=== PATIENT | male | born 1955 | race Caucasian/White ===

== ENCOUNTER 2020-08-28 08:24 | Outpatient (CLI) | payer OTHER, SELFPAY ==
--- NOTE | 2020-08-28 08:45 | USCV_ITS ---
Kurt Estrada Age: 64 Gender: M : 1955 Exam Date: 08/28/2020 08:43 Ordering Phys: Stephan Scott M.D ([email or web address]) Technologist: Carloz Feng Exam Location: [facility] – [place] Indication: murmur BP: 127 / 73 HR: 71 Rhythm: Sinus Technical Quality: Fair MEASUREMENTS (Male / Female) Normal Values 2D ECHO LV Diastolic Diameter PLAX 5.6 cm 4.2 - 5.9 / 3.9 - 5.3 cm LV Systolic Diameter PLAX 3.4 cm IVS Diastolic Thickness 1.6 cm 0.6 - 1.0 / 0.6 - 0.9 cm IVS Systolic Thickness 2.0 cm LVPW Diastolic Thickness 1.4 cm 0.6 - 1.0 / 0.6 - 0.9 cm LVPW Systolic Thickness 1.7 cm LVOT Diameter 2.1 cm LV Ejection Fraction 2D Teich 69.0 % LV Ejection Fraction MOD 2C 62.2 % LV Ejection Fraction 2C AL 64.3 % LA Diameter 3.9 cm Aorta at Sinotubular Diameter 3.0 cm DOPPLER AV Peak Velocity 98.0 cm/s LVOT Peak Velocity 83.0 cm/s AV Area Cont Eq vti 2.6 cm squared AV Area Cont Eq pk 2.9 cm squared MV Area PHT 5.0 cm squared Mitral E to A Ratio 1.9 MV E' Velocity 114.0 cm/s Mitral E to LV E' Septal Ratio 10.6 TR Peak Velocity 163.0 cm/s TR Peak Gradient 10.6 mmHg TV Peak E Velocity 105.0 cm/s Right Atrial Pressure 3.0 mmHg Pulmonary Artery Systolic Pressu 13.6 mmHg PV Peak Velocity 88.0 cm/s FINDINGS Left Ventricle Normal left ventricular size,. LV systolic function is normal with EF of 55-60%. No regional wall motion abnormalities. Diastolic function is normal Right Ventricle The right ventricle is normal in size and function. Right Atrium The right atrium is normal in size. Left Atrium The left atrium is normal in size. Mitral Valve Grossly normal without significant stenosis or prolapse. There is mild mitral regurgitation. Aortic Valve Structurally normal aortic valve without significant sclerosis or stenosis. There is no aortic regurgitation. Tricuspid Valve Grossly normal without significant stenosis or regurgitation. Insufficient TR jet to calculate RVSP Pulmonic Valve Grossly normal Pericardium Normal pericardium without effusion. Aorta Normal ascending aorta dimension. CONCLUSIONS LV systolic function is normal with EF of 55-60%. Diastolic function is normal Mild mitral regurgitation Compared to prior echocardiogram from 12/22/2015, no significant changes are noted Stephan Scott MD (Electronically Signed) Final Date: 04 September 2020 17:28 S
[2020-08-28] MEDS: perflutren protein-a microsphr 0.22 mg/mL SDV 3 mL IV (09:22)
== END 2020-08-28 08:25 | disposition home or self-care (01) ==
LOC: RAD 08:29
PROVIDERS: PCP Internal Medicine; Visit Provider Internal Medicine
DX: R01.1 Cardiac murmur, unspecified (principal); I34.0 Nonrheumatic mitral (valve) insufficiency
CPT/HCPCS: C8929

== ENCOUNTER 2020-11-13 14:21 | Outpatient (CLI) | payer OTHER, SELFPAY | END 2020-11-13 14:22 | disposition home or self-care (01) | LOC: WOUND 14:21 | PROVIDERS: PCP Internal Medicine; Visit Provider Thoracic Surgery (Cardiothoracic Vascular Surgery) | DX: E11.621 Type 2 diabetes mellitus with foot ulcer (principal); L97.522 Non-pressure chronic ulcer of other part of left foot with fat layer exposed | CPT/HCPCS: 11042; G0463 ==

== ENCOUNTER 2020-11-14 10:58 | Outpatient (CLI) | payer OTHER, SELFPAY ==
--- NOTE | 2020-11-14 11:10 | XR_ITS ---
WS: [id number] RIGHT FOOT: 3 VIEW(S) TECHNIQUE: AP, oblique and lateral. HISTORY: TYPE 2 DIABETES MELLITUS WITH FOOT ULCER COMPARISON: None available. Soft tissue thickening and edema over the lateral foot at the level of the fifth metatarsal. Soft tis kaiser thickening extends over a length of 5.3 cm x 0.6 cm centered along the lateral foot. There is ext ensive hypertrophic bone formation involving the proximal third, fourth and fifth metatarsals. Extens damian soft tissue calcifications along the lateral surface of the foot extending towards the calcaneus. Probably from healed osteomyelitis. At this time no evidence for an acute osteomyelitis is demonstra kaylan. XR/XR foot RT min 3V* [id number] IMPRESSION: 1. Extensive soft tissue edema along the lateral foot at the level of the fift h proximal metatarsal. There is no large soft tissue ulceration. 2. Hypertrophic bone formation with loss of the normal contours of the third, fourth and fifth proximal metatarsals. Probably from healed areas of osteomyeli tis. At this time there is no evidence for an acute radiographic osteomyelitis.
--- NOTE | 2020-11-14 11:10 | XR_ITS ---
WS: [id number] LEFT FOOT: 3 VIEW(S) TECHNIQUE: AP, oblique and lateral. HISTORY: TYPE 2 DIABETES MELLITUS WITH FOOT ULCER COMPARISON: None available. No acute fracture. Marked internal rotation of the foot with respect to the ankle. Overlapping tarsal and metatarsals. H ammertoe deformities. Mild soft tissue thickening along the lateral foot. The underlying bone appears intact. No evidence for osteomyelitis. Calcifications are noted in the soft tissues adjacent to the cuboid. XR/XR foot LT min 3V* [id number] IMPRESSION: 1. Mild soft tissue edema along the lateral foot. 2. No evidence for osteomyelitis evident radiographically.
== END 2020-11-14 10:59 | disposition home or self-care (01) ==
PROVIDERS: PCP Internal Medicine; Visit Provider Thoracic Surgery (Cardiothoracic Vascular Surgery)
DX: E11.621 Type 2 diabetes mellitus with foot ulcer (principal); R60.0 Localized edema
CPT/HCPCS: 73630

== ENCOUNTER 2020-11-20 15:37 | Outpatient (CLI) | payer OTHER, SELFPAY | END 2020-11-20 15:38 | disposition home or self-care (01) | LOC: WOUND 15:37 | PROVIDERS: PCP Internal Medicine; Visit Provider Thoracic Surgery (Cardiothoracic Vascular Surgery) | DX: E11.621 Type 2 diabetes mellitus with foot ulcer (principal); L97.521 Non-pressure chronic ulcer of other part of left foot limited to breakdown of skin | CPT/HCPCS: 97597 ==

== ENCOUNTER 2020-11-27 15:22 | Outpatient (CLI) | payer OTHER, SELFPAY | END 2020-11-27 15:23 | disposition home or self-care (01) | LOC: WOUND 15:26 | PROVIDERS: PCP Internal Medicine; Visit Provider Nurse Practitioner Family | DX: E11.621 Type 2 diabetes mellitus with foot ulcer (principal); L97.522 Non-pressure chronic ulcer of other part of left foot with fat layer exposed | CPT/HCPCS: 11042 ==

== ENCOUNTER 2020-12-03 15:13 | Outpatient (CLI) | payer OTHER, SELFPAY | END 2020-12-03 15:14 | disposition home or self-care (01) | LOC: WOUND 15:13 | PROVIDERS: PCP Internal Medicine; Visit Provider Nurse Practitioner Family | DX: E11.621 Type 2 diabetes mellitus with foot ulcer (principal); L97.522 Non-pressure chronic ulcer of other part of left foot with fat layer exposed | CPT/HCPCS: 11042 ==

== ENCOUNTER 2020-12-10 14:58 | Outpatient (CLI) | payer OTHER, SELFPAY | END 2020-12-10 14:59 | disposition home or self-care (01) | LOC: WOUND 15:00 | PROVIDERS: PCP Internal Medicine; Visit Provider Thoracic Surgery (Cardiothoracic Vascular Surgery) | DX: E11.621 Type 2 diabetes mellitus with foot ulcer (principal); L97.521 Non-pressure chronic ulcer of other part of left foot limited to breakdown of skin; I10 Essential (primary) hypertension | CPT/HCPCS: 97597 ==

== ENCOUNTER 2020-12-24 15:08 | Outpatient (CLI) | payer OTHER, SELFPAY | END 2020-12-24 15:09 | disposition home or self-care (01) | PROVIDERS: PCP Internal Medicine; Visit Provider Thoracic Surgery (Cardiothoracic Vascular Surgery) | DX: E11.621 Type 2 diabetes mellitus with foot ulcer (principal); L97.521 Non-pressure chronic ulcer of other part of left foot limited to breakdown of skin; I10 Essential (primary) hypertension | CPT/HCPCS: 97597 ==

== ENCOUNTER 2021-01-07 15:12 | Outpatient (CLI) | payer OTHER, SELFPAY | END 2021-01-07 15:13 | disposition home or self-care (01) | LOC: WOUND 15:13 | PROVIDERS: PCP Internal Medicine; Visit Provider Nurse Practitioner Family | DX: E11.621 Type 2 diabetes mellitus with foot ulcer (principal); L97.521 Non-pressure chronic ulcer of other part of left foot limited to breakdown of skin; I10 Essential (primary) hypertension | CPT/HCPCS: 11042 ==

== ENCOUNTER 2021-01-14 15:37 | Outpatient (CLI) | payer OTHER, SELFPAY | END 2021-01-14 15:38 | disposition home or self-care (01) | LOC: WOUND 15:37 | PROVIDERS: PCP Internal Medicine; Visit Provider Emergency Medicine | DX: E11.621 Type 2 diabetes mellitus with foot ulcer (principal); L97.522 Non-pressure chronic ulcer of other part of left foot with fat layer exposed | CPT/HCPCS: 11042 ==

== ENCOUNTER 2021-01-21 15:40 | Outpatient (CLI) | payer OTHER, SELFPAY | END 2021-01-21 15:41 | disposition home or self-care (01) | LOC: WOUND 15:41 | PROVIDERS: PCP Internal Medicine; Visit Provider Thoracic Surgery (Cardiothoracic Vascular Surgery) | DX: E11.621 Type 2 diabetes mellitus with foot ulcer (principal); L97.521 Non-pressure chronic ulcer of other part of left foot limited to breakdown of skin | CPT/HCPCS: 97597 ==

== ENCOUNTER 2021-01-28 15:18 | Outpatient (CLI) | payer OTHER, SELFPAY | END 2021-01-28 15:19 | disposition home or self-care (01) | LOC: WOUND 15:19 | PROVIDERS: PCP Internal Medicine; Visit Provider Nurse Practitioner Family | DX: E11.621 Type 2 diabetes mellitus with foot ulcer (principal); L97.521 Non-pressure chronic ulcer of other part of left foot limited to breakdown of skin; I10 Essential (primary) hypertension | CPT/HCPCS: 11042 ==

== ENCOUNTER 2021-08-16 18:46 | Emergency (ER) | payer OTHER, SELFPAY ==
[2021-08-16 19:11] VITALS: BP 158/80; PULSE 77; RESP 16; TEMP 36.1; O2SAT 95
--- NOTE | 2021-08-16 20:05 | XRR_ITS ---
PROCEDURE INFORMATION: Exam: XR Right Ankle Exam date and time: 08/16/2021 10:39 PM Age: 65 years old Clinical indication: Pain; Ankle; Right TECHNIQUE: Imaging protocol: Radiologic exam of the Right ankle. Views: 3 or more views. COMPARISON: CR (LOW EXM, ) 08/16/2021 10:33 PM FINDINGS: Bones/joints: No fracture or bone destruction. Incidental heel spur. Soft tissues: There is diffuse soft tissue edema around the ankle greater laterally than medially. XR/XR ankle RT min 3V* [id number] IMPRESSION: Soft tissue edema. Intact bone and joint
--- NOTE | 2021-08-16 20:05 | XRR_ITS ---
PROCEDURE INFORMATION: Exam: XR Right Foot Exam date and time: 08/16/2021 10:41 PM Age: 65 years old Clinical indication: Pain; Foot; Right; Additional info: Foot pain TECHNIQUE: Imaging protocol: Radiologic exam of the Right foot. Views: 3 or more views. COMPARISON: CR XR foot RT min 3V* [id number] 11/14/2020 11:18 AM FINDINGS: Bones/joints: No fracture or bone destruction. Soft tissues: There is soft tissue edema in the proximal and mid foot. The more distal foot is only mildly swollen. Other findings: No abnormal gas collection. XR/XR foot RT min 3V* [id number] IMPRESSION: Proximal foot edema. No fracture or bone destruction.
--- NOTE | 2021-08-16 20:05 | XRR_ITS ---
PROCEDURE INFORMATION: Exam: XR Right Tibia and Fibula Exam date and time: 08/16/2021 10:33 PM Age: 65 years old Clinical indication: Pain; Lower leg; Right TECHNIQUE: Imaging protocol: Radiologic exam of the Right tibia and fibula. Views: 2 views. COMPARISON: CR XR foot RT min 3V* [id number] 11/14/2020 11:18 AM FINDINGS: Bones/joints: Incidental heel spur. The tibia and fibula are intact. Soft tissues: There is generalized soft tissue edema throughout the calf and ankle. Other findings: No abnormal gas collection. XR/XR tibia fibula RT 2V [id number] IMPRESSION: 1. Soft tissue swelling. 2. Intact bones
[2021-08-16 22:15] VITALS: BP 138/68; PULSE 70; RESP 18; O2SAT 92
--- NOTE | 2021-08-16 22:29 | USR_ITS ---
PROCEDURE INFORMATION: Exam: US Duplex Right Lower Extremity Veins, Limited Exam date and time: 08/16/2021 10:55 PM Age: 65 years old Clinical indication: Pain; Leg, lower; Right; Additional info: Pain redness swelling rle TECHNIQUE: Imaging protocol: Real-time Duplex ultrasound of the Right Lower Extremity with 2-D velasco scale, color Doppler flow and spectral waveform analysis with image documentation. Limited exam was focused on the right lower extremity veins. COMPARISON: CR (LOW EXM, ) 08/16/2021 10:41 PM FINDINGS: Right deep veins: Unremarkable. The common femoral, femoral, proximal profunda femoral and popliteal veins are patent without thrombus. Normal Doppler waveforms. Normal compressibility and/or augmentation response. Right superficial veins: Unremarkable. Saphenofemoral junction is patent without thrombus. Soft tissues: Unremarkable. US/[place] [id number] IMPRESSION: No evidence of deep vein thrombosis in the right leg.
[2021-08-16 22:55] LABS: Basophils # 0.1 10^3/uL (0.0-0.1); Basophils % 0.7 %; Eosinophils # 0.2 10^3/uL (0.0-0.8); Eosinophils % 1.7 %; Hematocrit 43.2 % (42.0-52.0); Hemoglobin 14.2 g/dL (11.7-16.6); Lymphocytes # 1.8 10^3/uL (0.8-4.8); Lymphocytes % 19.8 %; Mean Corpuscular HGB Conc 32.9 g/dL (30.0-36.0); Mean Corpuscular Hemoglobin 30.5 pg (28.0-34.0); Mean Corpuscular Volume 92.7 fl (80-94); Mean Platelet Volume 8.9 fL (7.4-10.4); Monocytes % 10.9 %; Neutrophils % 66.5 %; Nucleated Red Blood Cells % 0 %; Platelet Count 203 10^3/cmm (130-400); Red Blood Count 4.66 10^6/uL (4.1-5.3); Red Cell Distribution Width 13.6 % (12.1-15.1)
[2021-08-16 22:59] LABS: Erythrocyte Sedimentation Rate 35 mm/hr (0-10)
[2021-08-16] MEDS: morphine 4 mg/mL SDV 1 mL IVP (23:04)
[2021-08-16] MEDS: ondansetron 2 mg/ML SDV 2 mL 4 MG IVP (23:04)
[2021-08-16] MEDS: vancomycin 1,500 MG/300 ML PIGGYBACK 200 MG IV (23:07)
[2021-08-16 23:16] LABS: Alanine Aminotransferase 19 U/L (0-41); Albumin Level 3.4 g/dL (3.5-5.2); Alkaline Phosphatase 89 IU/L (40-130); Anion Gap 13.1 (5-19); Aspartate Amino Transferase 15 U/L (0-40); Blood Urea Nitrogen 13 mg/dL (8-23); C Reactive Protein 106.2 mg/L (0.0-4.9); Calcium 8.5 mg/dL (8.5-10.5); Carbon Dioxide 25 mmol/L (22-29); Chloride 102 mmol/L (98-107); Globulin 3.6 g/dL (1.3-4.6); Glomerular Filtration Rate 136.1 mL/min (90-130); Glucose 129 mg/dL (65-115); Osmolality Calculated 284 mOsm/kg (285-295); Potassium 4.1 mmol/L (3.5-5.1); Sodium 136 mmol/L (136-145); Total Bilirubin 0.6 mg/dL (0.15-1.2)
[2021-08-16 23:45] VITALS: BP 138/68; PULSE 68; O2SAT 92
[2021-08-17] VITALS: BP 153/71; PULSE 69; O2SAT 95
[2021-08-17] MEDS: morphine 4 mg/mL SDV 1 mL IVP (00:18)
[2021-08-17 01:00] VITALS: BP 137/74; PULSE 69; RESP 18; O2SAT 93
[2021-08-17 01:41] VITALS: BP 137/74; PULSE 69; RESP 18; O2SAT 93
--- NOTE | 2021-08-17 02:57 | W.ED.EXTPRO ---
HPI - Extremity Problem General: Chief complaint: Extremity Problem,Nontraumatic Stated complaint: swelling & redness of right leg & knot on foot Time Seen by Provider: 08/16/21 22:21 Source: patient History of Present Illness: He notes [id number] gentleman with right-sided lower extremity pain, redness, and swelling. He spot on the lateral side of his right foot that is grown in size over the past few days. It has become quite painful. He denies fever. No vomiting. MD Complaint: extremity pain and extremity swelling Onset (ago): day(s) Pain Consistency: constant Location: right and lower extremity Quality: aching, sharp and constant Radiation: none Relieving factors: nothing Exacerbating factors: weight bearing Associated symptoms: Reports rash; Deny chest pain, fever(s), myalgias or short of breath Review of Systems Const: Denies: fever(s) Eyes: Denies: change in vision Card: Denies: chest pain Resp: Denies: dyspnea GI: Denies: abdominal pain, nausea or vomiting Skin/Breast: Reports: rash, erythema, skin tenderness and skin swelling PFSH ED PFSH: Medical History ASHD (arteriosclerotic heart disease) Diabetes Diabetic neuropathy Erectile disorder due to medical condition in male HTN (hypertension) Hyperlipidemia Obesity Surgical History S/P CABG (coronary artery bypass graft) S/P PTCA (percutaneous transluminal coronary angioplasty) Social History Smoking and tobacco status: never smoked Alcohol intake: current Alcohol intake frequency: few times a week Alcohol type: hard liquor Household members: spouse Marital status: Physical Exam Const: COMMON NORMALS: no acute distress GENERAL APPEARANCE: cooperative HENMT: COMMON NORMALS: normocephalic and atraumatic HEAD & SCALP: normocephalic and atraumatic FACE & SINUS: normal facial exam and face symmetric Eye: COMMON NORMALS: Equal, round and reactive pupils present and EOMs intact bilaterally PUPIL: Yes Equal, round and reactive pupils present Neck/C-Spine: GENERAL: Yes trachea midline Chest: CHEST: Yes Symmetrical chest wall rise Resp: COMMON NORMALS: normal respiratory effort, No use of accessory muscles and clear to auscultation bilaterally AUSCULTATION: clear to auscultation bilaterally Cardio: COMMON NORMALS: regular rate and regular rhythm RATE: regular rate RHYTHM: regular rhythm GI: INSPECTION: Yes normal to inspection Extremity: NARRATIVE EXTREMITY EXAM: Examination of the right lower extremity reveals beefy erythema and soft tissue swelling to the foot, and leg. There is a 4 cm area of fluctuance over the right lateral foot. It is painful to touch. There is a small blister that has popped over the area, with some minimal serosanguineous drainage from that. No streaking up the thigh. No pain on palpation of the popliteal fossa GENERAL: Yes edema (3+) LEFT LOWER EXTREMITY: Yes lower leg Neuro: MOHAN COMA SCALE: document GCS findings Harwood coma scale eye opening: Spontaneous Mohan coma scale verbal response: Orientated Mohan coma scale motor response: Obey commands Harwood coma scale total score: 15 Skin: NARRATIVE SKIN EXAM: See above Procedures Abscess I/D Site: lower extremity Side (if applicable): right Local Anesthetic: lidocaine 1% Amount of anesthesia used (mL): 5 Technique: incised with #11 blade Amount of fluid expressed (mL): 8 Irrigation: No Packing used?: none Course Vital Signs: Vital signs: Vital Signs Temperature 97.0 F L 08/16/21 19:11 Pulse Rate 69 08/17/21 01:41 Respiratory Rate 18 08/17/21 01:41 Blood Pressure 137/74 08/17/21 01:41 Pulse Oximetry 93 08/17/21 01:41 MDM - Extremity (Nontraumatic) Medical Decision Making No fever here. He does not appear toxic or septic. His CBC is normal. His sed rate is minimally elevated. His CRP is 100. His BMP is essentially normal. X-rays of the lower extremity do not reveal any bony destruction, only soft tissue swelling ultrasound for DVT of the lower extremity is negative. Bedside ultrasound of the fluctuant area of the lateral foot reveals a fluid-filled structure with the appearance of an abscess. This was incised and drained. The patient tolerated well. It is bandaged. He will follow-up with his doctor. He received 1.5 g of vancomycin here. He will continue doxycycline. He knows to return for any worsening problems. Lab Data : 08/16/21 22:50 08/16/21 22:50 Radiology Impressions Ankle X-Ray 08/16/21 20:05 IMPRESSION: Soft tissue edema. Intact bone and joint Foot X-Ray 08/16/21 20:05 IMPRESSION: Proximal foot edema. No fracture or bone destruction. Tibia/Fibula X-Ray 08/16/21 20:05 IMPRESSION: 1. Soft tissue swelling. 2. Intact bones Venous Duplex 08/16/21 22:29 IMPRESSION: No evidence of deep vein thrombosis in the right leg. Laboratory Results WBC 9.0 10^3/uL (4.0-10.0) 08/16/21 22:50 RBC 4.66 10^6/uL (4.1-5.3) 08/16/21 22:50 Hgb 14.2 g/dL (11.7-16.6) 08/16/21 22:50 Hct 43.2 % (42.0-52.0) 08/16/21 22:50 MCV 92.7 fl (80-94) 08/16/21 22:50 MCH 30.5 pg (28.0-34.0) 08/16/21 22:50 MCHC 32.9 g/dL (30.0-36.0) 08/16/21 22:50 RDW 13.6 % (12.1-15.1) 08/16/21 22:50 Plt Count 203 10^3/cmm (130-400) 08/16/21 22:50 MPV 8.9 fL (7.4-10.4) 08/16/21 22:50 Neut % (Auto) 66.5 % 08/16/21 22:50 Lymph % (Auto) 19.8 % 08/16/21 22:50 [place] % (Auto) 10.9 % 08/16/21 22:50 Eos % (Auto) 1.7 % 08/16/21 22:50 Baso % (Auto) 0.7 % 08/16/21 22:50 Neut # (Auto) 6.00 10^3/uL (1.8-7.7) 08/16/21 22:50 Lymph # (Auto) 1.8 10^3/uL (0.8-4.8) 08/16/21 22:50 [place] # (Auto) 1.0 10^3/uL (0.2-0.9) H 08/16/21 22:50 Eos # (Auto) 0.2 10^3/uL (0.0-0.8) 08/16/21 22:50 Baso # (Auto) 0.1 10^3/uL (0.0-0.1) 08/16/21 22:50 Nucleated RBC % (auto) 0 % 08/16/21 22:50 Nucleated RBCs # 0.0 /100WBC 08/16/21 22:50 ESR 35 mm/hr (0-10) H 08/16/21 22:50 Sodium 136 mmol/L (136-145) 08/16/21 22:50 Potassium 4.1 mmol/L (3.5-5.1) 08/16/21 22:50 Chloride 102 mmol/L (98-107) 08/16/21 22:50 Carbon Dioxide 25 mmol/L (22-29) 08/16/21 22:50 Anion Gap 13.1 (5-19) 08/16/21 22:50 BUN 13 mg/dL (8-23) 08/16/21 22:50 Creatinine 0.6 mg/dL (0.7-1.2) L 08/16/21 22:50 GFR Calculation 136.1 mL/min (90-130) H 08/16/21 22:50 Glucose 129 mg/dL (65-115) H 08/16/21 22:50 Calculated Osmolality 284 mOsm/kg (285-295) L 08/16/21 22:50 Calcium 8.5 mg/dL (8.5-10.5) 08/16/21 22:50 Total Bilirubin 0.6 mg/dL (0.15-1.2) 08/16/21 22:50 AST 15 U/L (0-40) 08/16/21 22:50 ALT 19 U/L (0-41) 08/16/21 22:50 Alkaline Phosphatase 89 IU/L (40-130) 08/16/21 22:50 C-Reactive Protein 106.2 mg/L (0.0-4.9) H 08/16/21 22:50 Total Protein 7.0 g/dL (6.6-8.7) 08/16/21 22:50 Albumin 3.4 g/dL (3.5-5.2) L 08/16/21 22:50 Globulin 3.6 g/dL (1.3-4.6) 08/16/21 22:50 Discharge Plan Discharge Patient Disposition: Home Clinical Impression: Cellulitis of right leg, Abscess of right foot Condition: Stable Prescriptions: New doxycycline hyclate 100 mg tablet 100 mg PO BID 14 Days Qty: 28 0RF hydrocodone-acetaminophen 5-325 mg tablet 1 tab PO Q8H PRN (Reason: pain) Qty: 7 0RF No Action atorvastatin 40 mg tablet 40 mg PO DAILY 0RF metformin 1,000 mg tablet 1,000 mg PO BID 0RF metoprolol tartrate 25 mg tablet 25 mg PO BID 0RF cinnamon bark [Cinnamon] 500 mg capsule 500 mg PO DAILY 0RF losartan 25 mg tablet 25 mg PO DAILY 0RF aspirin [Aspir-81] 81 mg tablet,delayed release (DR/EC) 81 mg PO DAILY 0RF Rybelsus 14 mg tablet 14 mg PO DAILY 0RF diltiazem HCl 240 mg capsule,extended release 24 hr 240 mg PO DAILY Qty: 90 3RF hydrochlorothiazide 12.5 mg tablet 12.5 mg PO DAILY Qty: 90 3RF Farxiga 10 mg tablet 10 mg PO DAILY 0RF Discharge Orders: Discharge ED (Routine); Ordered 08/17/21 Ordered By: Yvan De Leon Referrals: Pablo Bell DO [Primary Care Provider] - 4-7 days Patient Instructions: Cellulitis (ED), Abscess (ED), Opioid Safety Activity Restrictions/Additional Instructions: Return for fever greater than 100 despite 2-3 doses of antibiotics, worsening pain, redness, swelling despite antibiotics, vomiting liquids or medications, other concerning symptoms. Elevate the foot when possible, particularly when nonweightbearing. Call your doctor Wednesday, they will want to see you this coming week for a wound check. Coding Level of Care Code ED Heating Unit Installer for Micah Troy
== END 2021-08-17 01:43 | disposition home or self-care (01) ==
PROVIDERS: Emergency Provider Emergency Medicine; PCP Internal Medicine
DX: L02.611 Cutaneous abscess of right foot (principal); L03.115 Cellulitis of right lower limb; I10 Essential (primary) hypertension; E78.5 Hyperlipidemia, unspecified; E66.9 Obesity, unspecified; Z68.41 Body mass index [BMI] 40.0-44.9, adult
CPT/HCPCS: 10060; 73590; 73610; 73630; 80053; 85025; 85651; 86140; 93971; 96365; 96375; 96376; 99284; J2270; J2405; J3370

== ENCOUNTER 2021-08-29 16:11 | Emergency (ER) | payer OTHER, SELFPAY ==
--- NOTE | 2021-08-29 16:14 | XRR_ITS ---
PROCEDURE INFORMATION: Exam: XR Right Foot Exam date and time: 08/29/2021 5:35 PM Age: 65 years old Clinical indication: Pain; Foot; Right; Additional info: R foot pain TECHNIQUE: Imaging protocol: Radiologic exam of the Right foot. Views: 3 or more views. COMPARISON: CR (LOW EXM, ) 08/16/2021 10:41 PM FINDINGS: Bones/joints: Transverse fracture through the base of the 5th metatarsal. Prominent calcaneal spur. Soft tissues: Soft tissue swelling adjacent to fracture site. XR/XR foot RT min 3V* [id number] IMPRESSION: Transverse fracture through the base of the 5th metatarsal.
[2021-08-29 16:45] VITALS: BP 121/69; PULSE 75; RESP 16; TEMP 37.1; O2SAT 95; BMI 43.7
--- NOTE | 2021-08-29 18:31 | ED_ITS ---
HPI - Extremity Problem General: Chief complaint: Extremity Problem,Nontraumatic Stated complaint: r foot pain Time Seen by Provider: 08/29/21 17:08 History of Present Illness: 65 yo male patient presents to ER with right foot pain. Pt states he was recently treated for cellulitis and put on antibiotics. pt states he was walking on that foot and heard a pop and had immdiate pain. Pt states his foot is still swollen from infection. Pt deneis any fever. Pt denies any known trauma. Pt denies any systemic symptoms of illness. Pt denies fever Associated symptoms: Deny chest pain, fever(s) or rash Review of Systems Const: Denies: fever(s), chills, body aches, change in appetite, change in weight, fatigue, malaise or diaphoresis Eyes: Denies: change in vision, blurry vision, blind spots, photophobia, eye discomfort, eye discharge, eye redness, floaters or seeing flashes ENMT: Denies: throat pain, uvular edema, enlarged tonsils, odynophagia, hoarseness, mouth pain, swelling of lips/tongue, oral sores, bleeding gums, dental pain, dry mouth, ear or mastoid pain, ear discharge, change in hearing, tinnitus, disequilibrium, nasal discharge, nasal congestion, post nasal drip or sinus pain Card: Denies: chest pain, palpitations, irregular heart rhythm, edema, swelling of feet/ankles, lightheadedness, syncope, pre-syncope, dyspnea on exertion, orthopnea, leg pain with exertion or acrocyanosis Resp: Denies: dyspnea, productive cough, non-productive cough, wheezing, stridor, pain on inspiration, change in phlegm color, hemoptysis or chest congestion GI: Denies: abdominal pain, nausea, vomiting, hematemesis, dysphagia, diarrhea, constipation, GI cramping, change in bowel habits or rectal pain : Denies: flank pain, dysuria, urinary frequency, urinary urgency, urinary hesitancy or hematuria Musc: Reports: extremity pain (Right foot pain); Denies: neck pain, back pain, extremity swelling, joint pain, joint swelling, joint redness, joint warmth or deformity Skin/Breast: Denies: rash, pruritus, erythema, sores, new lesions, changes in skin color or dry skin Neuro: Denies: headache(s), numbness in extremities, weakness in extremities, sensory changes, lack of coordination, difficulty walking, frequent falls, dizziness, vertigo, confusion, behavioral changes, Slurred speech present, difficulty communicating thoughts or seizure-like activity Psych: Denies: anxiety, depression, suicidal ideation or homicidal ideation Endo: Denies: polyuria, polydipsia, tired all the time, cold intolerance, excessive sweating, flushing, hot flashes or heat intolerance Tremayne/Lymph: Denies: easy bruising, easy bleeding, petechiae, purpura, enlarged lymph nodes or tender lymph nodes All/Imm: Denies: urticaria, throat swelling, tongue swelling, facial swelling, acute wheezing or itchy eyes PFSH ED PFSH: Medical History ASHD (arteriosclerotic heart disease) Diabetes Diabetic neuropathy Erectile disorder due to medical condition in male HTN (hypertension) Hyperlipidemia Obesity Surgical History S/P CABG (coronary artery bypass graft) S/P PTCA (percutaneous transluminal coronary angioplasty) Social History Smoking and tobacco status: never smoked Alcohol intake: current Alcohol intake frequency: few times a week Alcohol type: hard liquor Household members: spouse Marital status: Physical Exam Const: COMMON NORMALS: no acute distress, patient oriented x3, healthy appearing, alert and well nourished GENERAL APPEARANCE: cooperative, comfortable, well kempt and well developed; not ill appearing ORIENTATION/CONSCIOUSNESS: Yes awake, Yes oriented to person, Yes oriented to place and Yes oriented to time HENMT: COMMON NORMALS: normocephalic, atraumatic, hearing grossly normal b ilaterally, external ears normal, EAC's normal, TM's normal bilaterally, Normal external nose present, Normal nasal mucous membranes and turbinates present and moist oral mucous membranes HEAD & SCALP: normal to inspection, normocephalic and atraumatic FACE & SINUS: normal facial exam NOSE: Normal external nose present and Normal nasal mucous membranes and turbinates present EXTERNAL EAR: Yes external ears normal EXTERNAL AUDITORY CANAL: EAC's normal TYMPANIC MEMBRANE: TM's normal bilaterally THROAT: no uvular edema Eye: GENERAL EYE: appearance normal, both eyes and all related structures Neck/C-Spine: COMMON NORMALS: full ROM, no meningeal signs, no JVD and Thyroid normal THYROID: Thyroid normal CERVICAL SPINE: Yes cervical ROM normal Resp: COMMON NORMALS: normal respiratory effort, No retractions, No use of accessory muscles and clear to auscultation bilaterally EFFORT & INSPECTION: Yes able to speak in complete sentences and Yes symmetric chest movement AUSCULTATION: clear to auscultation bilaterally Cardio: COMMON NORMALS: no JVD, regular rate and regular rhythm RATE: regular rate RHYTHM: regular rhythm Extremity: NARRATIVE EXTREMITY EXAM: Pt c/o right foot pain tender to palpate at 5th metatarsal edema noted pt is NVI distally but does have neuroapathy Neuro: COMMON NORMALS: patient oriented x3, CN's II-XII intact bilaterally, moves all extremities, no focal motor deficits, no sensory deficits noted, deep tendon reflexes 2+ bilaterally and gait normal SENSORIUM/ORIENTATION: Yes alert, Yes oriented to person, Yes oriented to place and Yes oriented to time MENINGEAL SIGNS: Yes no meningeal signs Psych: COMMON NORMALS: mental status grossly normal, Normal thought process present, cooperative, normal affect, speech normal, activity/motor behavior normal, denies hallucinations, denies homicidal ideation and denies suicidal ideation APPEARANCE: Yes grossly normal and Yes well kempt ATTITUDE: Yes calm ACTIVITY/MOTOR BEHAVIOR: Yes appropriate eye contact SPEECH: Yes normal speech THOUGHT PROCESS: Normal thought process present THOUGHT CONTENT: Yes Normal thought content present ATTENTION/CONCENTRATION: Yes attention grossly intact MEMORY/COGNITION: Yes memory grossly intact INSIGHT: Good insight present (Psych) JUDGEMENT: Good judgement present (Psych) Skin: COMMON NORMALS: turgor normal, no jaundice, no petechiae and no mottling NARRATIVE SKIN EXAM: Pt has erythema noted to the lateral aspect of right foot. Pt also has a 2cm area of fluctuation induration and pointing. GENERAL SKIN EXAM: turgor normal Procedures Abscess I/D Site: foot (right lateral) Sedation/analgesia: none Local Anesthetic: lidocaine 1% (2ml) Amount of anesthesia used (mL): 2 Technique: incised with #11 blade Amount of fluid expressed (mL): 5 Irrigation: Yes Packing used?: plain Complications: other (none) Course Vital Signs: Vital signs: Vital Signs Temperature 98.7 F 08/29/21 16:45 Pulse Rate 75 08/29/21 16:45 Respiratory Rate 16 08/29/21 16:45 Blood Pressure 121/69 08/29/21 16:45 Pulse Oximetry 95 08/29/21 16:45 MDM - Extremity (Nontraumatic) Medical Decision Making Patient is well apearingnon toxic and in no acute distress. n antibiotics. pt states he was walking on that foot and heard a pop and had immdiate pain. Pt states his foot is still swollen from infection. Pt deneis any fever. Pt denies any known trauma. Pt denies any systemic symptoms of illness. Pt denies fever Pt has findings c/w ascess to right lateral aspect of foot. Please see procedure note for I&D. Will start on clindamycin and have stop keflex. Will have follow up in 48 hours for packing removal and wound recheck. xray does reveal a fracture of the 5th metatarsal (base). Given patient size and fracture I will place in posterior OCL. Will have patient follow up with Dr. Menezes. Pt is NVI distally pre and post splint application. Pt has not systemic symptoms of illness and states other than his foot he has no complaints. Discussed with patient close follow up and return precautions Lab Data Radiology Impressions Foot X-Ray 08/29/21 16:14 IMPRESSION: Transverse fracture through the base of the 5th metatarsal. Discharge Plan Discharge Patient Disposition: Home Clinical Impression: Abscess, Metatarsal bone fracture Condition: Stable Prescriptions: New Cleocin HCl 300 mg capsule 300 mg PO Q8H 10 Days Qty: 30 0RF No Action atorvastatin 40 mg tablet 40 mg PO DAILY 0RF metformin 1,000 mg tablet 1,000 mg PO BID 0RF metoprolol tartrate 25 mg tablet 25 mg PO BID 0RF cinnamon bark [Cinnamon] 500 mg capsule 500 mg PO DAILY 0RF losartan 25 mg tablet 25 mg PO DAILY 0RF aspirin [Aspir-81] 81 mg tablet,delayed release (DR/EC) 81 mg PO DAILY 0RF Rybelsus 14 mg tablet 14 mg PO DAILY 0RF diltiazem HCl 240 mg capsule,extended release 24 hr 240 mg PO DAILY Qty: 90 3RF hydrochlorothiazide 12.5 mg tablet 12.5 mg PO DAILY Qty: 90 3RF Farxiga 10 mg tablet 10 mg PO DAILY 0RF doxycycline hyclate 100 mg tablet 100 mg PO BID 14 Days Qty: 28 0RF hydrocodone-acetaminophen 5-325 mg tablet 1 tab PO Q8H PRN (Reason: pain) Qty: 7 0RF Discharge Orders: Discharge ED (Routine); Ordered 08/29/21 Ordered By: Thalia Richards Referrals: Pablo Bell DO [Primary Care Provider] - Discharge Diet: Advance as tolerated Discharge Activity: Use walker/crutches as instructed and Return to work/school after cleared by PCP/Specialist Patient Instructions: Opioid Safety Activity Restrictions/Additional Instructions: Please use crutches and no weight bearing until seen by Dr. Rehman Please return to er in 48 hours for packing removal and wound recheck Please take antibiotics as prescribed Please return to ER with any worsening of pain or symptoms Major Assembler will call you with follow up appointment with Dr. Rehman Coding Level of Care Code ED Ict Account Manager for Micah Troy
[2021-08-29] MEDS: clindamycin 150 mg Capsule 300 MG PO (20:18)
--- NOTE | 2021-08-31 13:36 | DCPLANNER ---
Addendum entered by Maritza Nash 09/03/21 14:42: Patient had a follow up appointment scheduled for 09.01.[address] Rehman at ortho - patient did attend appointment. Original Note: manager relocation had message to schedule a follow up appointment for patient with ortho. manager relocation sent patients information to the front office staff at ortho. Patients information will be printed and reviewed. Clinic will call patient with appointment information.
== END 2021-08-29 20:30 | disposition home or self-care (01) ==
PROVIDERS: Emergency Provider Registered Nurse; PCP Internal Medicine
DX: L02.611 Cutaneous abscess of right foot (principal); S92.354A Nondisplaced fracture of fifth metatarsal bone, right foot, initial encounter for closed fracture; Z79.84 Long term (current) use of oral hypoglycemic drugs; Z79.82 Long term (current) use of aspirin; E11.40 Type 2 diabetes mellitus with diabetic neuropathy, unspecified; I10 Essential (primary) hypertension; E78.5 Hyperlipidemia, unspecified; Z95.1 Presence of aortocoronary bypass graft; X58.XXXA Exposure to other specified factors, initial encounter
CPT/HCPCS: 10060; 73630; 99283; E0114

== ENCOUNTER 2021-08-31 09:32 | Emergency (ER) | payer OTHER, SELFPAY ==
[2021-08-31 10:22] VITALS: BP 133/84; PULSE 68; RESP 16; TEMP 36.8; O2SAT 95; BMI 43.7
--- NOTE | 2021-08-31 11:05 | ED_ITS ---
HPI - Wound/Laceration General: Chief Complaint: Wound/Laceration Stated Complaint: Wound Care Time Seen by Provider: 08/31/21 10:35 Source: patient Mode of arrival: other (crutches) Limitations: no limitations History of Present Illness: 65-year-old male presents to the ER today for a wound check/dressing change. Patient was seen on Wednesday and diagnosed with a metatarsal fracture and also an abscess of the right lateral foot. Patient had that opened up on Wednesday and packing was placed. Patient reports he has kept it covered and splint on since Wednesday. He was told to return on Wednesday for wound check. He denies any fever chills or worsening symptoms at this time. Review of Systems General: Reports: 10 or more systems reviewed and unremarkable except in HPI and below PFSH ED PFSH: Medical History ASHD (arteriosclerotic heart disease) Diabetes Diabetic neuropathy Erectile disorder due to medical condition in male HTN (hypertension) Hyperlipidemia Obesity Surgical History S/P CABG (coronary artery bypass graft) S/P PTCA (percutaneous transluminal coronary angioplasty) Social History Smoking and tobacco status: never smoked Alcohol intake: current Alcohol intake frequency: few times a week Alcohol type: hard liquor Household members: spouse Marital status: Physical Exam Const: COMMON NORMALS: no acute distress, average body habitus, patient oriented x3, no limitations and alert Eye: COMMON NORMALS: conjunctivae normal CONJUNCTIVA: Yes conjunctivae normal Resp: COMMON NORMALS: normal respiratory effort EFFORT & INSPECTION: Yes able to speak in complete sentences Cardio: COMMON NORMALS: regular rate and regular rhythm RATE: regular rate RHYTHM: regular rhythm Extremity: NARRATIVE EXTREMITY EXAM: There is still some swelling noted to the right lower extremity. No bruising is noted. Still tenderness over the dorsal aspect of the right foot. Neuro: COMMON NORMALS: patient oriented x3 SENSORIUM/ORIENTATION: Yes alert Psych: COMMON NORMALS: mental status grossly normal, Normal thought process present and cooperative THOUGHT PROCESS: Normal thought process present Skin: NARRATIVE SKIN EXAM: Patient has a 3 cm x 3 cm wound noted to the lateral aspect of the right foot. There is packing noted. Packing was removed in its entirety. There was mild bloody discharge noted. Skin around the wound is very moist. There is minimal redness noted. Wound was covered with a nonstick dressing in ER today. Right foot was then resplinted today. Course ED course: 65-year-old male presents to the ER today for right foot wound check. Patient was seen on Wednesday and diagnosed with an abscess and right metatarsal fracture. Patient reports he was told to follow-up to have the wound checked today and packing removed. I did remove the splint in its entirety in order to visualize the wound. The wound is approximately 3 cm x 3 cm. There was packing present. A small amount of packing was removed in its entirety. Wound looks good. No erythema noted. There was bloody drainage when packing was removed. Minimal tenderness on exam. We will change the dressing and reapply the splint in the ER today. Vital Signs: Vital signs: Vital Signs Temperature 98.2 F 08/31/21 10:22 Pulse Rate 68 08/31/21 10:22 Respiratory Rate 16 08/31/21 10:22 Blood Pressure 133/84 08/31/21 10:22 Pulse Oximetry 95 08/31/21 10:22 MDM - Wound/Laceration Medical Decision Making 65-year-old male presents to the ER today for right foot wound check. Patient was seen on Wednesday and diagnosed with an abscess and right metatarsal fracture. Patient reports he was told to follow-up to have the wound checked today and packing removed. I did remove the splint in its entirety in order to visualize the wound. The wound is approximately 3 cm x 3 cm. There was packing present. A small amount of packing was removed in its entirety. Wound looks good. No erythema noted. There was bloody drainage when packing was removed. Minimal tenderness on exam. We will change the dressing and reapply the splint in the ER today. A nonstick Telfa dressing was applied. Patient tolerated the procedure well. A new splint was reapplied. Patient should follow-up with Ortho or podiatry whoever he was referred to this week. Also follow-up PCP for wound check. Patient verbalized understanding and was in agreement with the treatment plan. Critical Care Time Critical Care Time: Critical Care Time: No Discharge Plan Discharge Patient Disposition: Home Clinical Impression: Abscess Condition: Stable Prescriptions: No Action atorvastatin 40 mg tablet 40 mg PO DAILY 0RF metformin 1,000 mg tablet 1,000 mg PO BID 0RF metoprolol tartrate 25 mg tablet 25 mg PO BID 0RF cinnamon bark [Cinnamon] 500 mg capsule 500 mg PO DAILY 0RF losartan 25 mg tablet 25 mg PO DAILY 0RF aspirin [Aspir-81] 81 mg tablet,delayed release (DR/EC) 81 mg PO DAILY 0RF Rybelsus 14 mg tablet 14 mg PO DAILY 0RF diltiazem HCl 240 mg capsule,extended release 24 hr 240 mg PO DAILY Qty: 90 3RF hydrochlorothiazide 12.5 mg tablet 12.5 mg PO DAILY Qty: 90 3RF Farxiga 10 mg tablet 10 mg PO DAILY 0RF Cleocin HCl 300 mg capsule 300 mg PO Q8H 10 Days Qty: 30 0RF hydrocodone-acetaminophen 5-325 mg tablet 1 tab PO Q8H PRN (Reason: pain) Qty: 7 0RF Discharge Orders: Discharge ED (Routine); Ordered 08/31/21 Ordered By: Michaelle Herrera Referrals: Pablo Bell DO [Primary Care Provider] - Discharge Diet: Usual diet Discharge Activity: Limit activity as instructed Patient Instructions: Opioid Safety Activity Restrictions/Additional Instructions: Continue home medications as previously prescribed. Leave splint on until follow-up with podiatry/Ortho. Follow-up with PCP in 5 to 7 days if unable to get into podiatry or Ortho. Return to the ER with new or worsening symptoms. Coding Level of Care Code ED Senior Industrial Engineer for Micah Troy
== END 2021-08-31 11:15 | disposition home or self-care (01) ==
PROVIDERS: Emergency Provider Physician Assistant; PCP Internal Medicine
DX: L02.611 Cutaneous abscess of right foot (principal); Z79.84 Long term (current) use of oral hypoglycemic drugs; Z79.82 Long term (current) use of aspirin; E11.40 Type 2 diabetes mellitus with diabetic neuropathy, unspecified; I10 Essential (primary) hypertension; E78.5 Hyperlipidemia, unspecified; Z95.1 Presence of aortocoronary bypass graft
CPT/HCPCS: 99282

== ENCOUNTER 2021-09-01 15:21 | Outpatient (CLI) | payer OTHER, SELFPAY | END 2021-09-01 15:22 | disposition home or self-care (01) | LOC: SPT 15:21 | PROVIDERS: PCP Internal Medicine; Visit Provider Podiatrist Foot & Ankle Surgery | DX: Z46.89 Encounter for fitting and adjustment of other specified devices (principal); S92.351D Displaced fracture of fifth metatarsal bone, right foot, subsequent encounter for fracture with routine healing; X58.XXXD Exposure to other specified factors, subsequent encounter; L97.513 Non-pressure chronic ulcer of other part of right foot with necrosis of muscle | CPT/HCPCS: 87070; 87075; 87205; 97760; L4361 ==

== ENCOUNTER → 2021-09-08 15:58 | Outpatient (BNVA) | payer OTHER, SELFPAY | PROVIDERS: PCP Internal Medicine; Visit Provider Podiatrist Foot & Ankle Surgery | DX: L97.513 Non-pressure chronic ulcer of other part of right foot with necrosis of muscle (principal) | CPT/HCPCS: 73630 ==

== ENCOUNTER 2021-10-10 12:46 | Outpatient (CLI) | payer OTHER, SELFPAY ==
--- NOTE | 2021-10-10 13:00 | MR_ITS ---
WS: [id number] MRI RIGHT FOOT with and without CONTRAST. COMPARISON: RIGHT foot radiograph 09/22/2021 Multiplanar, multisequence imaging is performed with and without contrast. Sagittal and axial T1 fat sat sequences post-MultiHance 20 cc IV. There is extensive soft tissue edema throughout nearly the entire foot. Edema extends to include the small muscles of the foot. There is no focal collection. There is no enhancing abscess. There is evid ence for cellulitis throughout the superficial soft tissues with edema. Area of abnormal enhancement extends into the tarsal and intermetatarsal through the small muscles of the foot and the soft tissue s. Extensive marrow edema with enhancement involving numerous bones of the foot. Marrow edema with enhan cement involving the proximal fifth metatarsal with enhancement. Enhancement extends into nonunion fr acture involving the proximal fifth metatarsal. Marrow edema with enhancement involving the proximal and mid fourth metatarsal. There is additional marrow edema with enhancement involving the second and third metatarsals. Greater than 50% involvement of the metatarsals. I suspect there may be nondispla hong fractures involving the proximal third through fifth metatarsals. Patient has a known Arias fract ure of the fifth metatarsal. There is additional marrow edema involving portions of the medial, inter mediate and lateral cuneiforms and the cuboid. MR/MR foot RT wo/w con [id number] IMPRESSION: 1. Abnormal marrow edema with enhancement involving the second through fifth m etatarsals, all 3 cuneiforms and the cuboid. This may all be posttraumatic with inflammatory changes. 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 Cannot exclude osteomyelitis. 2. No focal abscess but there is extensive cellulitis throughout the soft tiss ues and small muscles of the foot. 3. Suspect nondisplaced fractures involving the second through fourth proximal metatarsals. This would be better evaluated by CT.
[2021-10-10] MEDS: gadobenate dimeglumine 20 mL vial IV (13:59)
== END 2021-10-10 12:47 | disposition home or self-care (01) ==
LOC: RAD 12:47
PROVIDERS: PCP Internal Medicine; Visit Provider Podiatrist Foot & Ankle Surgery
DX: S92.351K Displaced fracture of fifth metatarsal bone, right foot, subsequent encounter for fracture with nonunion (principal); L97.513 Non-pressure chronic ulcer of other part of right foot with necrosis of muscle; S99.199A Other physeal fracture of unspecified metatarsal, initial encounter for closed fracture; X58.XXXA Exposure to other specified factors, initial encounter
CPT/HCPCS: 73630; 73720

== ENCOUNTER → 2021-10-30 15:30 | Outpatient (BNVA) | payer OTHER, SELFPAY | PROVIDERS: PCP Internal Medicine; Visit Provider Podiatrist Foot & Ankle Surgery | DX: E11.42 Type 2 diabetes mellitus with diabetic polyneuropathy (principal); Q66.221 Congenital metatarsus adductus, right foot; Q66.222 Congenital metatarsus adductus, left foot; Z79.84 Long term (current) use of oral hypoglycemic drugs; S99.191G Other physeal fracture of right metatarsal, subsequent encounter for fracture with delayed healing; M25.371 Other instability, right ankle; X58.XXXD Exposure to other specified factors, subsequent encounter | CPT/HCPCS: 73630 ==

== ENCOUNTER → 2021-12-04 11:26 | Outpatient (BNVA) | payer OTHER, SELFPAY | PROVIDERS: PCP Internal Medicine; Visit Provider Podiatrist Foot & Ankle Surgery | DX: S92.354A Nondisplaced fracture of fifth metatarsal bone, right foot, initial encounter for closed fracture (principal); X58.XXXA Exposure to other specified factors, initial encounter; E11.42 Type 2 diabetes mellitus with diabetic polyneuropathy; Q66.221 Congenital metatarsus adductus, right foot; Q66.222 Congenital metatarsus adductus, left foot; M25.371 Other instability, right ankle; Z79.84 Long term (current) use of oral hypoglycemic drugs | CPT/HCPCS: 73630 ==

== ENCOUNTER → 2022-01-15 12:56 | Outpatient (BNVA) | payer OTHER, SELFPAY | PROVIDERS: PCP Internal Medicine; Visit Provider Podiatrist Foot & Ankle Surgery | DX: S92.354A Nondisplaced fracture of fifth metatarsal bone, right foot, initial encounter for closed fracture (principal); E11.42 Type 2 diabetes mellitus with diabetic polyneuropathy; Q66.221 Congenital metatarsus adductus, right foot; Q66.222 Congenital metatarsus adductus, left foot; M25.371 Other instability, right ankle; X58.XXXA Exposure to other specified factors, initial encounter; Z79.84 Long term (current) use of oral hypoglycemic drugs | CPT/HCPCS: 73630 ==

== ENCOUNTER 2022-03-30 11:31 | Emergency (ER) | payer OTHER, SELFPAY ==
[2022-03-30 11:56] VITALS: BP 154/84; PULSE 62; RESP 16; TEMP 36.3; O2SAT 94
--- NOTE | 2022-03-30 12:46 | ED_ITS ---
HPI - Extremity Problem General: Chief complaint: Back Pain/Injury Stated complaint: back pain Time Seen by Provider: 03/30/22 12:02 Source: patient and family Mode of arrival: ambulatory Limitations: no limitations History of Present Illness: Patient is a 66-year-old male who presents to ED today along with his for evaluation of left hip pain. Patient tells me he has intermittent left hip and back pain and has so over the past several years. He states his hip will flareup if he works or walks too long on it. He states in the past flare has seemed to subside on its own however this time it does not seem to be improving. He states his pain currently feels like previous pains he has had. He has not noticed any redness or warmth to the hip joint. He has not noticed any swelling to the lower extremity or color or temperature changes. No numbness, tingling, loss of sensation. He is not currently having back pain. No fevers. MD Complaint: joint pain Onset (ago): day(s) Pain Consistency: constant and other (will subside on previous episodes on its own) Location: left and lower extremity (hip) Associated symptoms: Deny chest pain, fever(s) or rash Review of Systems Const: Denies: fever(s), chills, body aches, fatigue or malaise Card: Denies: chest pain Resp: Denies: dyspnea GI: Denies: abdominal pain : Denies: flank pain, dysuria or hematuria Musc: Reports: back pain (intermittent/chronic-no pain currently) and joint pain (L hip pain); Denies: neck pain, extremity pain, extremity swelling, joint swelling, joint redness or joint warmth Skin/Breast: Denies: rash Neuro: Denies: headache(s), numbness in extremities, weakness in extremities or sensory changes PFSH ED PFSH: Medical History ASHD (arteriosclerotic heart disease) Diabetes Diabetic neuropathy Erectile disorder due to medical condition in male HTN (hypertension) Hyperlipidemia Obesity Surgical History S/P CABG (coronary artery bypass graft) S/P PTCA (percutaneous transluminal coronary angioplasty) Social History (Reviewed 02/22/23 @ 07:05 by ISAAC Duke Smoking and tobacco status: never smoked Alcohol intake: current Alcohol intake frequency: few times a week Alcohol type: hard liquor Household members: spouse Marital status: Physical Exam Const: COMMON NORMALS: no acute distress, patient oriented x3, no limitations and alert GENERAL APPEARANCE: cooperative NUTRITIONAL APPEARANCE: obese morbidly obese ORIENTATION/CONSCIOUSNESS: Yes awake, Yes oriented to person, Yes oriented to place and Yes oriented to time HENMT: COMMON NORMALS: normocephalic and atraumatic HEAD & SCALP: normal to inspection, normocephalic and atraumatic Resp: COMMON NORMALS: normal respiratory effort and clear to auscultation bilaterally AUSCULTATION: clear to auscultation bilaterally Cardio: COMMON NORMALS: regular rate and regular rhythm RATE: regular rate RHYTHM: regular rhythm Back/Pelvis: COMMON NORMALS: thoracic and lumbar spine normal to inspection, no thoracic nor lumbar tenderness, thoraco-lumbar ROM normal and straight leg r aise negative bilaterally PELVIS: Yes buttocks normal SACROILIAC JOINTS: Yes SI joints normal SACRUM: no tenderness COCCYX: no tenderness Extremity: COMMON NORMALS: full ROM, capillary refill normal, no joint enlargement, no clubbing, cyanosis or edema, no calf tenderness and no pedal edema GENERAL: Yes normal exam except as noted LEFT LOWER EXTREMITY: Yes hip joint (TTP posteriolateral L hip; maintains good ROM) Left hip: Yes inspection (no redness/warmth present) and Yes neurovascular exam (normal) Neuro: COMMON NORMALS: patient oriented x3, moves all extremities, no focal motor deficits, no sensory deficits noted and gait normal SENSORIUM/ORIENTATION: Yes alert, Yes oriented to person, Yes oriented to place and Yes oriented to time Skin: COMMON NORMALS: no rashes or lesions noted GENERAL SKIN EXAM: no rashes or lesions noted Course Vital Signs: Vital signs: Vital Signs Temperature 97.4 F L 03/30/22 11:56 Pulse Rate 62 03/30/22 11:56 Respiratory Rate 16 03/30/22 11:56 Blood Pressure 154/84 03/30/22 11:56 Pulse Oximetry 94 03/30/22 11:56 MDM - Extremity (Nontraumatic) Medical Decision Making Patient is a 66-year-old male with a longstanding history of intermittent lower back and left hip pain. It is his left hip pain that is prompting his visit today. At this point I do not feel any imaging is going to ultimately yield any treatment changes from our end. We will place him on anti-inflammatories and steroids and recommend he follow-up with his primary care provider for further evaluation of the back and hip pain. Return to ED precautions given. Discharge Plan Discharge Patient Disposition: Home Clinical Impression: Left hip pain Condition: Stable Prescriptions: New ibuprofen 800 mg tablet 800 mg PO Q8H PRN (Reason: pain) Qty: 20 0RF Medrol (Rafa) 4 mg tablets,dose pack See Rx Instructions .ROUTE .COMPLEX Qty: 21 0RF Rx Instructions: orally per package directions No Action atorvastatin 40 mg tablet 40 mg PO DAILY metformin 1,000 mg tablet 1,000 mg PO BID metoprolol tartrate 25 mg tablet 25 mg PO BID cinnamon bark [Cinnamon] 500 mg capsule 500 mg PO DAILY losartan 25 mg tablet 25 mg PO DAILY aspirin [Aspir-81] 81 mg tablet,delayed release (DR/EC) 81 mg PO DAILY Rybelsus 14 mg tablet 14 mg PO DAILY Farxiga 10 mg tablet 10 mg PO DAILY mupirocin 2 % ointment 1 applic topical BID Qty: 22 0RF (DME) Articulating AFO to the right with orthopedic shoes with extra depth See Rx Instructions .Route .MEDSUPPLY Qty: 1 0RF Rx Instructions: As directed [employer] (DME) Cam boot to right See Rx Instructions .Route .MEDSUPPLY Qty: 1 0RF Rx Instructions: As directed hydrochlorothiazide 12.5 mg tablet 12.5 mg PO DAILY Qty: 90 3RF diltiazem HCl 240 mg capsule,extended release 24 hr 240 mg PO DAILY Qty: 90 3RF hydrocodone-acetaminophen 5-325 mg tablet 1 tab PO Q8H PRN (Reason: pain) Qty: 7 0RF Discharge Orders: Discharge ED (Routine); Ordered 03/30/22 Ordered By: Vera Almanza Referrals: Pablo Bell DO [Primary Care Provider] - Coding Level of Care Code ED Glaze Supervisor for Micah Troy
[2022-03-30] MEDS: ketorolac 60 mg/2 mL INJ IM (12:55)
[2022-03-30] MEDS: dexamethasone 10 mg/mL INJ 8 MG IM (12:57)
== END 2022-03-30 13:01 | disposition home or self-care (01) ==
PROVIDERS: Emergency Provider Physician Assistant; PCP Internal Medicine
DX: M25.552 Pain in left hip (principal); Z79.84 Long term (current) use of oral hypoglycemic drugs; Z79.82 Long term (current) use of aspirin; E11.9 Type 2 diabetes mellitus without complications; I10 Essential (primary) hypertension; E78.5 Hyperlipidemia, unspecified; Z95.1 Presence of aortocoronary bypass graft
CPT/HCPCS: 96372; 99284; J1100; J1885

== ENCOUNTER → 2022-04-15 13:57 | Outpatient (BNVA) | payer OTHER, SELFPAY | PROVIDERS: PCP Internal Medicine; Visit Provider Podiatrist Foot & Ankle Surgery | DX: E11.42 Type 2 diabetes mellitus with diabetic polyneuropathy (principal); Q66.221 Congenital metatarsus adductus, right foot; Q66.222 Congenital metatarsus adductus, left foot; M25.371 Other instability, right ankle; S99.191D Other physeal fracture of right metatarsal, subsequent encounter for fracture with routine healing; X58.XXXD Exposure to other specified factors, subsequent encounter; Z79.84 Long term (current) use of oral hypoglycemic drugs | CPT/HCPCS: 73630 ==

== ENCOUNTER 2022-07-23 08:13 | Outpatient (CLI) | payer OTHER, SELFPAY ==
--- NOTE | 2022-07-23 08:30 | USCV_ITS ---
Natlaie Kurt Age: 66 Gender: M : 1955 Exam Date: 07/23/2022 08:38 Ordering Phys: Stephan Scott M.D ([email or web address]) Technologist: Exam Location: [facility] – [place] Indication: SHORTNESS OF BREATH BP: 134 / 73 HR: 68 Rhythm: Sinus Technical Quality: Adequate MEASUREMENTS (Male / Female) Normal Values 2D ECHO LV Diastolic Diameter PLAX 5.5 cm 4.2 - 5.9 / 3.9 - 5.3 cm LV Systolic Diameter PLAX 3.8 cm IVS Diastolic Thickness 1.5 cm 0.6 - 1.0 / 0.6 - 0.9 cm IVS Systolic Thickness 1.6 cm LVPW Diastolic Thickness 1.4 cm 0.6 - 1.0 / 0.6 - 0.9 cm LVPW Systolic Thickness 1.4 cm LVOT Diameter 2.0 cm LV Ejection Fraction 2D Teich 59.7 % LV Ejection Fraction MOD 2C 70.5 % LV Ejection Fraction 2C AL 70.2 % LA Diameter 5.4 cm M-MODE Aortic Annulus Diameter 4.0 cm LA Ao Ratio MM 1.3 MV E Point Septal Separation 1.0 cm DOPPLER AV Peak Velocity 108.0 cm/s LVOT Peak Velocity 73.0 cm/s AV Area Cont Eq vti 2.0 cm squared AV Area Cont Eq pk 2.1 cm squared MV Area PHT 5.0 cm squared Mitral E to A Ratio 1.6 MV E' Velocity 90.0 cm/s TR Peak Velocity 141.0 cm/s TR Peak Gradient 8.0 mmHg TV Peak E Velocity 84.0 cm/s Right Atrial Pressure 3.0 mmHg Pulmonary Artery Systolic Pressu 11.0 mmHg FINDINGS Left Ventricle Technically very limited quality echocardiogram because of poor ultrasonic windows. LV systolic function is normal with EF of 60 to 65%. No regional wall motion abnormalities are seen. Right Ventricle Not well visualized Right Atrium Not well visualized Left Atrium Not well visualized Mitral Valve Not well visualized Aortic Valve Not well visualized. No significant stenosis or regurgitation is seen. Tricuspid Valve Not well visualized Pulmonic Valve Not well visualized Pericardium Not well visualized Aorta Not well visualized IVC Not well visualized CONCLUSIONS Technically very limited quality echocardiogram because of poor ultrasonic windows. LV systolic function is normal with EF of 60 to 65%. No regional wall motion abnormalities are seen. Valvular structures are not visualized. Accurate comparison with prior studies is not possible because of poor quality imaging at this time. Stephan Scott MD (Electronically Signed) Final Date: 23 July 2022 17:30 S
[2022-07-23] MEDS: perflutren protein-a microsphr 0.22 mg/mL SDV 3 mL IV (08:54)
== END 2022-07-23 08:14 | disposition home or self-care (01) ==
PROVIDERS: PCP Internal Medicine; Visit Provider Internal Medicine
DX: R06.02 Shortness of breath (principal)
CPT/HCPCS: C8929; Q9956

== ENCOUNTER 2022-08-07 07:50 | Outpatient (CLI) | payer OTHER, SELFPAY ==
--- NOTE | 2022-08-07 08:03 | CT_ITS ---
WS: [id number] CT LUMBAR SPINE, noncontrast. HISTORY: SPINAL STENOSIS, LUMBAR, WITH NEUROGENIC CLAUDICATION TECHNIQUE: Contiguous 2.0 mm axial imaging are performed. Sagittal and coronal reformats are submitte d and reviewed. All CT scans at [facility] use at least one of these dose optimization techni ques: automated exposure control; mA and/or kV adjustment per patient size (includes targeted exams w here dose is matched to clinical indication); or iterative reconstruction. IV contrast: None DLP: 2429.89 mGy.cm COMPARISON: Radiographs 05/14/2022 Straightening of the normal lumbar spine. Disc spaces are narrowed. Most significant disc space narro wing at L5-S1. Hypertrophic osteophytes at all levels. Large osteophytes bridge between the vertebral bodies. No acute fracture. L1-2: Marked osteophytic ridging around the vertebral body with mild facet arthritis. Moderate centra l, bilateral subarticular recess and foraminal stenosis. There is osteophyte contacting the nerve elvia ts bilaterally but greatest on the LEFT. L2-3: Marked osteophytic ridging. Mild facet arthritis. Marked central, subarticular recess and wayne inal stenosis. Most significant encroachment is just inferior to the disc level by osteophyte. L3-4: Severe central, bilateral subarticular recess and moderate foraminal stenosis. Stenosis predomi nantly due to facet joint arthritis and osteophytosis. L4-5: Marked osteophytic ridging around the vertebral bodies and facet arthritis. Severe central, mandy ateral subarticular recess and mild foraminal stenosis. L5-S1: Marked osteophytic ridging and facet arthritis. Severe central, bilateral subarticular recess and foraminal stenosis. Atherosclerotic plaque within the abdominal aorta. Calcification continues into the mesenteric arteri es. CT/CT lumbar spine wo con* [id number] IMPRESSION: 1. Severe multilevel stenoses predominantly due to marked hypertrophic osteoph yte formation. Osteophyte formation within the vertebral bodies and also facet joint arthritis. 2. No acute fractures identified. 3. Severe central, bilateral subarticular recess and foraminal stenosis at L5- S1. 4. Additional severe central and subarticular recess stenosis at L3-4 and L4-5 and L2-3. 5. Moderate central, bilateral subarticular recess and foraminal stenosis at L 1-2.
== END 2022-08-07 07:51 | disposition home or self-care (01) ==
PROVIDERS: PCP Internal Medicine; Visit Provider Orthopaedic Surgery
DX: M48.062 Spinal stenosis, lumbar region with neurogenic claudication (principal); M25.78 Osteophyte, vertebrae
CPT/HCPCS: 72131

== ENCOUNTER 2023-07-07 13:44 | Outpatient (CLI) | payer MEDICARE, SELFPAY ==
--- NOTE | 2023-07-07 13:53 | XR_ITS ---
WS: [id number] Exam: XR lumbar spine 2-3V* [id number] Date/Time of Exam: 07/07/2023 1:54 PM Reason For Exam: Lumbar radiculopathy There is posterior fusion of the spine from L3-S1 with pedicle screws and posterior rods. Disc spacer s at L4-5 and L5-S1. Marked spondylosis. The fusion is in satisfactory alignment. No sign of hardware failure. Degenerative disc changes and facet arthropathy at all levels. XR/XR lumbar spine 2-3V* [id number] IMPRESSION: 1. Stable appearing spinal fusion from L3-S1. No complications identified. 2. Advanced degenerative changes.
== END 2023-07-07 13:45 | disposition home or self-care (01) ==
LOC: RAD 13:51
PROVIDERS: PCP Internal Medicine; Visit Provider Nurse Practitioner Family
DX: M47.27 Other spondylosis with radiculopathy, lumbosacral region (principal)
CPT/HCPCS: 72100

== ENCOUNTER 2023-07-13 10:06 | Outpatient (CLI) | payer MEDICARE, SELFPAY ==
[2023-07-13 10:51] LABS: Basophils # 0.1 10^3/uL (0.0-0.1); Basophils % 0.7 %; Eosinophils # 0.2 10^3/uL (0.0-0.8); Eosinophils % 2.4 %; Hematocrit 44.2 % (37-53); Lymphocytes # 1.8 10^3/uL (0.8-4.8); Lymphocytes % 24.5 %; Mean Corpuscular HGB Conc 32.6 g/dL (30-55); Mean Corpuscular Hemoglobin 30.2 pg (27-33); Mean Corpuscular Volume 92.7 fl (82-101); Mean Platelet Volume 8.9 fL (7.4-10.4); Monocytes # 0.6 10^3/uL (0.2-0.9); Monocytes % 8.1 %; Neutrophils % 63.8 %; Nucleated Red Blood Cells % 0 %; Platelet Count 226 10^3/cmm (157-399); Red Blood Count 4.77 10^6/uL (3.85-5.65); Red Cell Distribution Width 13.4 % (12.1-15.1); White Blood Count 7.52 10^3/uL (3.29-11.43)
[2023-07-13 11:22] LABS: C Reactive Protein 3.5 mg/L (0.0-4.9)
== END 2023-07-13 10:07 | disposition home or self-care (01) ==
LOC: LAB 10:09
PROVIDERS: PCP Internal Medicine; Visit Provider Nurse Practitioner Family
DX: T81.89XA Other complications of procedures, not elsewhere classified, initial encounter (principal); X58.XXXA Exposure to other specified factors, initial encounter
CPT/HCPCS: 36415; 85025; 86140

== ENCOUNTER → 2023-12-15 15:10 | Outpatient (BNVA) | payer MEDICARE, SELFPAY | PROVIDERS: PCP Internal Medicine; Visit Provider Internal Medicine Cardiovascular Disease | DX: I10 Essential (primary) hypertension (principal); E78.49 Other hyperlipidemia; Z95.1 Presence of aortocoronary bypass graft | CPT/HCPCS: 99214 ==

== ENCOUNTER → 2024-12-11 14:50 | Outpatient (BNVA) | payer MEDICARE, SELFPAY | PROVIDERS: PCP Internal Medicine; Visit Provider Internal Medicine Cardiovascular Disease | DX: I25.10 Atherosclerotic heart disease of native coronary artery without angina pectoris (principal); I10 Essential (primary) hypertension; E78.5 Hyperlipidemia, unspecified; R01.1 Cardiac murmur, unspecified | CPT/HCPCS: 99214 ==